=== PATIENT | female | born 1955 | race Caucasian/White ===

== ENCOUNTER → 2018-06-16 | Outpatient (REF) | payer BC, MEDICARE, SELFPAY ==
[2018-06-16 13:10] LABS: ALBUMIN 3.9 GM/DL (3.2-5.2); ALBUMIN/GLOBULIN RATIO 1.39 (1.00-1.93); ALKALINE PHOSPHATASE 73 U/L (45-117); ALT/SGPT 36 U/L (12-78); ANION GAP 9 MEQ/L (8-16); AST/SGOT 14 U/L (7-37); BILIRUBIN,TOTAL 0.5 MG/DL (0.2-1.0); BLOOD UREA NITROGEN 16 MG/DL (7-18); CALCIUM LEVEL 8.9 MG/DL (8.8-10.2); CARBON DIOXIDE LEVEL 27 MEQ/L (21-32); CHLORIDE LEVEL 107 MEQ/L (98-107); CHOLESTEROL LEVEL 169 MG/DL (<200); CREATININE FOR GFR 0.89 MG/DL (0.55-1.30); GLOMERULAR FILTRATION RATE > 60.0 (>45); GLUCOSE, FASTING 140 MG/DL (70-100); HDL CHOLESTEROL 66 MG/DL (>40); LDL CHOLESTEROL 82.4 MG/DL (<100); NON-HDL-C 103 MG/DL; POTASSIUM SERUM 3.9 MEQ/L (3.5-5.1); SODIUM LEVEL 143 MEQ/L (136-145); TOTAL PROTEIN 6.7 GM/DL (6.4-8.2); TRIGLYCERIDES LEVEL 103 MG/DL (<150)
[2018-06-16 14:06] LABS: ESTIMATED AVERAGE GLUCOSE 146 MG/DL (60-110); HEMOGLOBIN A1c 6.7 %
== END ==
LOC: M LABDRWAD 12:23
DX: E11.9 Type 2 diabetes mellitus without complications (principal); E78.00 Pure hypercholesterolemia, unspecified
CPT/HCPCS: 84443

== ENCOUNTER → 2018-09-30 | Outpatient (REF) | payer BC, MEDICARE, OTHER ==
[~2018-09-30] MED LIST: /PRAV20TA OR; AUGM875T28 PO; BACT800T5 PO; COZA50TA PO; IBUP200C25 PO; IBUP400T OR; LISI10TA4 OR; LOSA25TA14 PO; MULTIVIT PO; PRAV10TA4 PO; ZANT150T OR; ZANT150T15 PO; [UNRECOGNIZED DRUG - OTHER]
[2018-09-30 14:20] LABS: ALT/SGPT 39 U/L (12-78); BILIRUBIN,TOTAL 0.5 MG/DL (0.2-1.0); BLOOD UREA NITROGEN 15 MG/DL (7-18); CALCIUM LEVEL 9.4 MG/DL (8.8-10.2); CARBON DIOXIDE LEVEL 25 MEQ/L (21-32); CHLORIDE LEVEL 107 MEQ/L (98-107); CREATININE FOR GFR 0.76 MG/DL (0.55-1.30); GLOMERULAR FILTRATION RATE > 60.0 (>45); GLUCOSE, FASTING 95 MG/DL (70-100); POTASSIUM SERUM 4.4 MEQ/L (3.5-5.1); SODIUM LEVEL 141 MEQ/L (136-145)
[2018-09-30 14:21] LABS: HEMOGLOBIN A1c 5.4 %
[2018-09-30 14:55] LABS: MALB URINE SIEMENS 30.2 MG/L; MAU/CREAT RATIO 18.4 MCG/MG (0.0-30.0)
== END ==
LOC: M LABDRWAD 12:20
PROVIDERS: ATTEND Family Medicine
DX: E11.9 Type 2 diabetes mellitus without complications (principal)

== ENCOUNTER → 2018-10-11 | Outpatient (REF) | payer BC, OTHER | LOC: M LAB REF 17:53 | DX: J02.9 Acute pharyngitis, unspecified (principal) | CPT/HCPCS: 87081 ==

== ENCOUNTER → 2019-01-28 | Outpatient (REF) | payer OTHER ==
[2019-01-28 13:43] LABS: BLOOD UREA NITROGEN 21 MG/DL (7-18); CALCIUM LEVEL 9.4 MG/DL (8.8-10.2); CARBON DIOXIDE LEVEL 28 MEQ/L (21-32); CHLORIDE LEVEL 107 MEQ/L (98-107); CREATININE FOR GFR 0.89 MG/DL (0.55-1.30); FREE T4 1.09 NG/DL (0.76-1.46); GLOMERULAR FILTRATION RATE > 60.0 (>45); GLUCOSE, FASTING 101 MG/DL (70-100); POTASSIUM SERUM 3.9 MEQ/L (3.5-5.1); SODIUM LEVEL 142 MEQ/L (136-145)
[2019-01-28 14:37] LABS: HEMOGLOBIN A1c 5.5 %
== END ==
LOC: M LABDRWAD 12:23
PROVIDERS: ATTEND Physician Assistant
DX: E11.9 Type 2 diabetes mellitus without complications (principal); E78.00 Pure hypercholesterolemia, unspecified

== ENCOUNTER → 2019-07-08 | Outpatient (REF) | payer OTHER ==
[~2019-07-08] MED LIST changes: -/PRAV20TA OR; +PRAV1TAB39 OR
[2019-07-08 14:38] LABS: BASO % 0.7 % (0.0-1.0); EOS # 0.2 10^3/uL (0.0-0.50); HEMATOCRIT 41.1 % (36.0-47.0); HEMOGLOBIN 13.7 g/dl (12.0-15.5); LYMPH # 1.6 10^3/uL (1.5-4.5); LYMPH % 36.4 % (24.0-44.0); MEAN CORPUSCULAR HEMOGLOBIN 31.1 pg (27.0-33.0); MEAN CORPUSCULAR HGB CONC 33.3 g/dl (32.0-36.5); MEAN CORPUSCULAR VOLUME 93.2 fl (80.0-96.0); MONO # 0.4 10^3/uL (0.0-0.8); MONO % 9.8 % (0.0-5.0); NEUTROPHILS # 2.1 10^3/uL (1.8-7.7); NEUTROPHILS % 47.9 % (36.0-66.0); PLATELET COUNT, AUTOMATED 213 10^3/uL (150-450); RED BLOOD COUNT 4.41 10^6/uL (4.00-5.40); WHITE BLOOD COUNT 4.4 10^3/uL (4.0-10.0)
[2019-07-08 15:30] LABS: ALT/SGPT 29 U/L (12-78); BILIRUBIN,TOTAL 0.4 MG/DL (0.2-1.0); BLOOD UREA NITROGEN 18 MG/DL (7-18); CALCIUM LEVEL 9.5 MG/DL (8.8-10.2); CARBON DIOXIDE LEVEL 30 MEQ/L (21-32); CHLORIDE LEVEL 108 MEQ/L (98-107); CHOLESTEROL LEVEL 174 MG/DL (<200); CHOLESTEROL RISK RATIO 2.558 (<5); CREATININE FOR GFR 0.88 MG/DL (0.55-1.30); GLOMERULAR FILTRATION RATE > 60.0 (>45); GLUCOSE, FASTING 103 MG/DL (70-100); HDL CHOLESTEROL 68 MG/DL (>40); LDL CHOLESTEROL 91 MG/DL (<100); NON-HDL-C 106 MG/DL; POTASSIUM SERUM 4.5 MEQ/L (3.5-5.1); SODIUM LEVEL 143 MEQ/L (136-145); TRIGLYCERIDES LEVEL 76 MG/DL (<150)
[2019-07-08 16:08] LABS: HEMOGLOBIN A1c 5.7 %
== END ==
LOC: M LABDRWAD 12:07
PROVIDERS: ATTEND Family Medicine
DX: E11.9 Type 2 diabetes mellitus without complications (principal); E78.00 Pure hypercholesterolemia, unspecified; I10 Essential (primary) hypertension

== ENCOUNTER → 2019-10-13 | Outpatient (REF) | payer MEDICARE, OTHER ==
[~2019-10-13] MED LIST changes: +BYDU1INJ SC; +CHOL50003 PO; +GLUC1CAP10 PO; +LOSA50TA88 PO; +METF500T13 PO; +MULTCAP PO; +OMEG1CAP16 PO; +PRAV40TA2 PO; +PROBCAP14 PO; +THERATEARS OU; +VENTAER INH
[2019-10-13 13:54] LABS: HEMOGLOBIN A1c 5.5 %
[2019-10-13 13:57] LABS: BLOOD UREA NITROGEN 18 MG/DL (7-18); CALCIUM LEVEL 9.4 MG/DL (8.8-10.2); CARBON DIOXIDE LEVEL 30 MEQ/L (21-32); CHLORIDE LEVEL 107 MEQ/L (98-107); CREATININE FOR GFR 0.96 MG/DL (0.55-1.30); GLOMERULAR FILTRATION RATE > 60.0 (>45); GLUCOSE, FASTING 107 MG/DL (70-100); POTASSIUM SERUM 4.7 MEQ/L (3.5-5.1); SODIUM LEVEL 142 MEQ/L (136-145)
== END ==
LOC: M LABDRWAD 12:36
PROVIDERS: ATTEND Physician Assistant
DX: E11.9 Type 2 diabetes mellitus without complications (principal)

== ENCOUNTER → 2019-10-27 | Outpatient (REF) | payer MEDICARE ==
[2019-10-27 12:52] LABS: HEMATOCRIT 42.6 % (36.0-47.0); HEMOGLOBIN 14.1 g/dl (12.0-15.5); MEAN CORPUSCULAR HEMOGLOBIN 31.1 pg (27.0-33.0); MEAN CORPUSCULAR HGB CONC 33.1 g/dl (32.0-36.5); PLATELET COUNT, AUTOMATED 197 10^3/uL (150-450); RED BLOOD COUNT 4.53 10^6/uL (4.00-5.40); WHITE BLOOD COUNT 4.1 10^3/uL (4.0-10.0)
[2019-10-27 13:17] LABS: BLOOD UREA NITROGEN 12 MG/DL (7-18); CALCIUM LEVEL 10.1 MG/DL (8.8-10.2); CARBON DIOXIDE LEVEL 28 MEQ/L (21-32); CHLORIDE LEVEL 106 MEQ/L (98-107); CREATININE FOR GFR 0.78 MG/DL (0.55-1.30); GLOMERULAR FILTRATION RATE > 60.0 (>45); GLUCOSE, FASTING 94 MG/DL (70-100); POTASSIUM SERUM 4.6 MEQ/L (3.5-5.1); SODIUM LEVEL 141 MEQ/L (136-145)
== END ==
LOC: M LAB REF 12:33
PROVIDERS: ATTEND Physician Assistant
DX: I44.2 Atrioventricular block, complete (principal)

== ENCOUNTER 2019-10-28 13:23 | Day surgery (SDC) | payer MEDICARE ==
[~2019-10-28] VITALS: Ht 172.7 cm; Wt 109.7 kg
[~2019-10-28 13:23] MED LIST changes: +LIDOCAINE 1% MDV 20ML VIAL SQ PRN; +LR 1,000 ML IV ONE; +ceFAZolin SOD 1 GM in D5W MINI-BAG PLUS 50 ML IV ONE
[2019-10-28] MEDS ORDERED: MIDAZOLAM INJ 2 MG/2 ML VIAL (J2250) As Ordered ONE (15:36)
[2019-10-28] MEDS ORDERED: PROPOFOL 200 MG/20 ML VIAL As Ordered ONE (15:37)
[2019-10-28] MEDS ORDERED: fentaNYL 100 MCG/2 ML INJECTION (J3010) As Ordered ONE (15:37)
[2019-10-28] MEDS ORDERED: LIDOCAINE 2% INJ 100 MG/5 ML SDV (FOR ANES.) As Ordered ONE (15:37)
[2019-10-28] MEDS ORDERED: ONDANSETRON 4MG/2ML VIAL (J2405) As Ordered ONE (16:53)
[2019-10-28 17:55] VITALS: BP 176/90
[2019-10-28] MEDS ORDERED: LIDOCAINE 1% SDV INJ 30 ML VIAL As Ordered ONE ×2 (18:41→18:42)
[2019-10-28] MEDS ORDERED: BACITRACIN PWD 50,000 UNITS VIAL As Ordered ONE ×2 (18:41→18:42)
--- NOTE | 2019-10-29 08:25 | RO ---
DATE OF PROCEDURE: 10/28/2019 PROCEDURE: 1. Explantation of depleted dual-chamber pacemaker battery. 2. Testing of old atrial and ventricular pacing leads. 3. Implantation of new dual-chamber pulse generator. IMPLANTING SALES ASSISTANTS AND SALESPERSONS: Dr. Luis Peter ANESTHESIOLOGIST: Dr. El PREOPERATIVE DIAGNOSES: 1. Pacemaker battery depletion. 2. Complete heart block. POSTOPERATIVE DIAGNOSES: 1. Pacemaker battery depletion. 2. Complete heart block. TYPE OF ANESTHESIA: Local anesthesia. CLINICAL SUMMARY: This 64-year-old resident of [place], [place] is well-known to my cardiology practice with hypertensive heart disease complicated by abnormal EKG and complete heart block. Status post permanent dual-chamber pacemaker implantation September of 2010. She has been followed regularly through my office and has been free of cardiovascular complaints. Her pacemaker battery has recently reached the elective replacement indicator and so her current procedure was scheduled. Pleasant obese late middle-aged woman lay comfortably. Heart rate 60 bpm and regular, blood pressure 136/76 sitting with large cuff. Respiratory rate 16. BMI of 36.9. No pallor or cyanosis. Normal oral moisture. Upper and lower dentures. Trachea midline. Neck veins were 3 cm above the sternal angle. Increased anteroposterior chest diameter with normal chest expansion. Well-healed pacemaker incision left subclavian region. Good air entry over both lung butler. No abnormal adventitious sounds. Heart sounds were quite distant. No audible gallop or murmur. Normal carotid upstrokes and pulses. No bruits. Plus/minus dependent pedal edema with few superficial dilated venules. Normal pedal pulses. Obese, soft abdomen. EKG showed consistent AV sequentially paced rhythm with paced QRS complexes having a left axis with left bundle branch block (LBBB) configuration in keeping with RV apical stimulation. Last blood work showed electrolyte balance with BUN 21, creatinine 0.9, potassium 3.9. Thyroid function was normal. DESCRIPTION OF PROCEDURE: The patient is in a fasting state having signed informed consent and having received Ancef 2 grams IV premedication, the patient was taken to the operating theater. Numerous skin electrodes were applied to facilitate continuous electrocardiographic monitoring. Self-adhesive cardioverting/defibrillating patches were applied in an anteroposterior configuration and connected to a bedside cardioverter defibrillator. The left subclavian region, the site of her old pacemaker, was then prepped and draped in the usual fashion. The skin over her old incision was infiltrated with 1% Xylocaine and a 5 cm linear incision was made. Careful dissection was carried down to the level of her old pulse generator which was then carefully explanted. ([employer] - model number [id number], serial number [id number] implanted October 09, 2010). Her old atrial and ventricular pacing leads were then carefully disconnected and tested independently. Her right ventricular pacing lead ([employer] model number 2088T/58, serial number [id number]) measurements were: Stimulation threshold 1.0, V/0.4 ms/impedance 410 ohms. She had no intrinsic R wave. Her right atrial lead ([employer] model number 2088T/52, serial number [id number]) measurements were: Stimulation threshold 0.75, V/0.4 ms/impedance 460 ohms. Her P wave amplitude measured 4.0 mV. These old pacing leads were then connected to a new MRI compatible dual-chamber pulse generator ([employer] model number [id number], serial number [id number]) and appropriate DDD pacing was documented. The old pacer pocket was thoroughly irrigated with bacitracin solution. The new device was then placed in the pocket. Subcutaneous tissues were approximated using a running chromic suture and the skin was closed using gian. A dry dressing was applied and the patient was returned to the recovery room in good condition. No apparent complications. Estimated blood loss less than 5 mL. She will be monitored briefly in the advanced recovery and able to be discharged home when she is able to ambulate and tolerate p.o. intake. DISCHARGE MEDICATIONS AND RECOMMENDATIONS: The patient has been instructed to perform only light activities of daily living with her left arm until her gian are removed in my office in 7-10 days. My office will be contacting her tomorrow morning with that appointment. She was also instructed to avoid getting her incision wet until her gian are removed. Her diet will resume, no added salt, reducing diet. Other activity is as tolerated. Medications were to include losartan 50 mg daily, pravastatin 40 mg q.h.s., multivitamin 1 tablet daily, omega 3 1000 units p.o. daily, metformin 500 mg p.o. b.i.d., Bydureon 2 mg subcutaneous once weekly, eye drops as directed, probiotic once daily, glucosamine sulfate 500 mg daily. I have requested she contact our office for any abnormal erythema, swelling or discharge. edited: 10/29/2019 0829 tkf
== END 2019-10-28 18:05 | disposition home or self-care (01) ==
LOC: M SDC 13:23
PROVIDERS: ATTEND Internal Medicine Cardiovascular Disease
DX: Z45.010 Encounter for checking and testing of cardiac pacemaker pulse generator [battery] (principal); I44.2 Atrioventricular block, complete; E11.9 Type 2 diabetes mellitus without complications; I10 Essential (primary) hypertension; K21.9 Gastro-esophageal reflux disease without esophagitis; J45.909 Unspecified asthma, uncomplicated; Z79.899 Other long term (current) drug therapy; Z88.8 Allergy status to other drugs, medicaments and biological substances; Z88.1 Allergy status to other antibiotic agents
CPT/HCPCS: 33228; C1785; J0690; J2250; J2405; J3010

== ENCOUNTER → 2020-03-30 | Outpatient (REF) | payer MEDICARE ==
[~2020-03-30] MED LIST changes: -LIDOCAINE 1% MDV 20ML VIAL SQ PRN; -LR 1,000 ML IV ONE; -ceFAZolin SOD 1 GM in D5W MINI-BAG PLUS 50 ML IV ONE
[2020-03-30 13:04] LABS: BASO # 0.1 10^3/uL (0.0-0.2); BASO % 1.2 % (0.0-1.0); EOS # 0.2 10^3/uL (0.0-0.5); EOS % 4.7 % (0.0-3.0); HEMOGLOBIN 14.7 g/dl (12.0-15.5); LYMPH # 1.5 10^3/uL (1.5-5.0); MEAN CORPUSCULAR HEMOGLOBIN 31.8 pg (27.0-33.0); MEAN CORPUSCULAR HGB CONC 34.2 g/dl (32.0-36.5); MEAN CORPUSCULAR VOLUME 93.1 fl (80.0-96.0); MONO # 0.5 10^3/uL (0.0-0.8); MONO % 11.2 % (0.0-5.0); NEUTROPHILS % 47.7 % (36.0-66.0); PLATELET COUNT, AUTOMATED 210 10^3/uL (150-450); RED BLOOD COUNT 4.62 10^6/uL (4.00-5.40); WHITE BLOOD COUNT 4.3 10^3/uL (4.0-10.0)
[2020-03-30 13:20] LABS: ALBUMIN 4.1 GM/DL (3.2-5.2); ALT/SGPT 33 U/L (12-78); BILIRUBIN,TOTAL 0.4 MG/DL (0.2-1.0); BLOOD UREA NITROGEN 18 MG/DL (7-18); CARBON DIOXIDE LEVEL 25 MEQ/L (21-32); CHLORIDE LEVEL 108 MEQ/L (98-107); CHOLESTEROL LEVEL 195 MG/DL (<200); CHOLESTEROL RISK RATIO 2.708 (<5); CREATININE FOR GFR 0.76 MG/DL (0.55-1.30); GLOMERULAR FILTRATION RATE > 60.0 (>45); GLUCOSE, FASTING 94 MG/DL (70-100); HDL CHOLESTEROL 72 MG/DL (>40); LDL CHOLESTEROL 98 MG/DL (<100); NON-HDL-C 123 MG/DL; POTASSIUM SERUM 4.2 MEQ/L (3.5-5.1); SODIUM LEVEL 142 MEQ/L (136-145); TOTAL PROTEIN 7.2 GM/DL (6.4-8.2); TRIGLYCERIDES LEVEL 123 MG/DL (<150)
[2020-03-30 16:25] LABS: HEMOGLOBIN A1c 5.8 %
== END ==
LOC: M LABDRWAD 12:25
PROVIDERS: ATTEND Family Medicine
DX: I11.9 Hypertensive heart disease without heart failure (principal); E11.9 Type 2 diabetes mellitus without complications; E78.00 Pure hypercholesterolemia, unspecified

== ENCOUNTER → 2020-10-05 | Outpatient (REF) | payer MEDICARE ==
[2020-10-05 13:04] LABS: BLOOD UREA NITROGEN 13 MG/DL (7-18); CALCIUM LEVEL 9.2 MG/DL (8.8-10.2); CARBON DIOXIDE LEVEL 28 MEQ/L (21-32); CHLORIDE LEVEL 107 MEQ/L (98-107); GLOMERULAR FILTRATION RATE > 60.0 (>45); GLUCOSE, FASTING 101 MG/DL (70-100); POTASSIUM SERUM 4.5 MEQ/L (3.5-5.1); SODIUM LEVEL 141 MEQ/L (136-145)
[2020-10-05 13:17] LABS: HEMOGLOBIN A1c 5.4 %
== END ==
LOC: M LABDRWAD 12:14
PROVIDERS: ATTEND Physician Assistant
DX: E11.9 Type 2 diabetes mellitus without complications (principal)

== ENCOUNTER → 2021-04-05 | Outpatient (REF) | payer MEDICARE ==
[2021-04-05 13:18] LABS: EOS # 0.2 10^3/uL (0.0-0.5); EOS % 4.6 % (0.0-3.0); HEMATOCRIT 44.4 % (36.0-47.0); HEMOGLOBIN 14.5 g/dl (12.0-15.5); LYMPH # 1.4 10^3/uL (1.5-5.0); LYMPH % 34.8 % (24.0-44.0); MEAN CORPUSCULAR HEMOGLOBIN 31.5 pg (27.0-33.0); MEAN CORPUSCULAR HGB CONC 32.7 g/dl (32.0-36.5); MEAN CORPUSCULAR VOLUME 96.3 fl (80.0-96.0); MONO # 0.5 10^3/uL (0.0-0.8); MONO % 11.2 % (2.0-8.0); NEUTROPHILS % 48.2 % (36.0-66.0); PLATELET COUNT, AUTOMATED 202 10^3/uL (150-450); RED BLOOD COUNT 4.61 10^6/uL (4.00-5.40); WHITE BLOOD COUNT 4.1 10^3/uL (4.0-10.0)
[2021-04-05 14:11] LABS: HEMOGLOBIN A1c 5.4 %
[2021-04-05 14:39] LABS: ALBUMIN 4.1 GM/DL (3.2-5.2); ALT/SGPT 33 U/L (12-78); BILIRUBIN,TOTAL 0.5 MG/DL (0.2-1.0); BLOOD UREA NITROGEN 16 MG/DL (7-18); CALCIUM LEVEL 9.9 MG/DL (8.8-10.2); CARBON DIOXIDE LEVEL 26 MEQ/L (21-32); CHLORIDE LEVEL 107 MEQ/L (98-107); CHOLESTEROL LEVEL 199 MG/DL (<200); CHOLESTEROL RISK RATIO 2.584 (<5); GLOMERULAR FILTRATION RATE > 60.0 (>45); GLUCOSE, FASTING 101 MG/DL (70-100); HDL CHOLESTEROL 77 MG/DL (>40); LDL CHOLESTEROL 102 MG/DL (<100); NON-HDL-C 122 MG/DL; POTASSIUM SERUM 4.4 MEQ/L (3.5-5.1); SODIUM LEVEL 141 MEQ/L (136-145); TOTAL PROTEIN 6.9 GM/DL (6.4-8.2); TRIGLYCERIDES LEVEL 102 MG/DL (<150)
[2021-04-05 14:41] LABS: CREATININE, URINE 71.1 MG/DL; MALB URINE SIEMENS 16.1 MG/L; MAU/CREAT RATIO 22.6 MCG/MG (0.0-30.0)
== END ==
LOC: M LABDRWAD 12:22 → M LAB REF 12:22
PROVIDERS: ATTEND Family Medicine
DX: E11.9 Type 2 diabetes mellitus without complications (principal); E78.00 Pure hypercholesterolemia, unspecified

== ENCOUNTER → 2021-05-04 | Outpatient (CLI) | payer MEDICARE ==
--- NOTE | 2021-05-04 11:28 | DEXAMM ---
INDICATION: Z13.820 SCREENING FOR OSTEOPOROSIS. COMPARISON: None. TECHNIQUE: Bone density was measured using dual-energy x-ray absorptiometry (DEXA). FINDINGS: AP SPINE L1-L4 BMD 1.230 g/cm2 Young Adult T-Score 0.1 Age Matched Z-Score 1.8. LT FEMUR, TOTAL BMD 0.854 g/cm2 Young Adult T-Score -1.2 Age Matched Z-Score 0.1. LT NECK BMD 0.745 g/cm2 Young Adult T-Score -2.1 Age Matched Z-Score -0.5. RT FEMUR, TOTAL BMD 0.920 g/cm2 Young Adult T-Score -0.7 Age Matched Z-Score 0.7. RT NECK BMD 0.786 g/cm2 Young Adult T-Score -1.8 Age Matched Z-Score -0.2. IMPRESSION: There is normal bone density of the spine. There is low bone density of the left hip. There is low bone density of the right hip. FOLLOW-UP: Recommendation for the next bone density exam: 2 years. <Electronically signed by Sridhar Long > 05/04/21 1120
== END ==
LOC: M WHC 07:54
PROVIDERS: ATTEND Physician Assistant
DX: Z13.820 Encounter for screening for osteoporosis (principal); M85.851 Other specified disorders of bone density and structure, right thigh; M85.852 Other specified disorders of bone density and structure, left thigh; M25.551 Pain in right hip

== ENCOUNTER → 2021-05-04 | Outpatient (CLI) | payer MEDICARE ==
--- NOTE | 2021-05-04 09:55 | REPPI ---
INDICATION: M25.551 PAIN IN RIGHT HIP COMPARISON: None. TECHNIQUE: AP and frog-lateral views of the right hip FINDINGS: Generalized age-related changes include subtle increased sclerosis to the acetabulum with very minimal joint space narrowing. No further overt osteoarthritic or significant degenerative changes are appreciated. No evidence for acute or healed injury. Surrounding soft tissues are normal. IMPRESSION: Mild generalized age-related changes. <Electronically signed by Jaciel Levy > 05/04/21 0990
== END ==
LOC: M PLAIMG 08:43
PROVIDERS: ATTEND Physician Assistant
DX: M25.551 Pain in right hip (principal)

== ENCOUNTER → 2021-07-10 | Outpatient (REF) | payer MEDICARE ==
[2021-07-10 13:08] LABS: BLOOD UREA NITROGEN 18 MG/DL (7-18); CALCIUM LEVEL 9.5 MG/DL (8.8-10.2); CARBON DIOXIDE LEVEL 27 MEQ/L (21-32); CHLORIDE LEVEL 107 MEQ/L (98-107); CREATININE FOR GFR 0.85 MG/DL (0.55-1.30); GLOMERULAR FILTRATION RATE > 60.0 (>45); GLUCOSE, FASTING 103 MG/DL (70-100); POTASSIUM SERUM 4.6 MEQ/L (3.5-5.1); SODIUM LEVEL 140 MEQ/L (136-145)
== END ==
LOC: M LABDRWAD 12:24
PROVIDERS: ATTEND Physician Assistant
DX: E11.9 Type 2 diabetes mellitus without complications (principal)

== ENCOUNTER → 2021-07-11 | Outpatient (CLI) | payer MEDICARE ==
[~2021-07-11] MED LIST changes: +ISOVUE-370 76% 100ML VIAL As Ordered ONE
--- NOTE | 2021-07-11 16:34 | REPVR ---
PROCEDURE INFORMATION: Exam: CT Angiography Head With Contrast, Arteriography Exam date and time: 07/11/2021 4:11 PM Age: 66 years old Clinical indication: Dizziness and giddiness; Additional info: Dizziness, giddiness TECHNIQUE: Imaging protocol: Computed tomography angiography of the head with contrast. Exam focused on the arteries. 3D rendering (Not supervised by radiologist): MIP and/or 3D reconstructed images were created by the technologist. Radiation optimization: All CT scans at this facility use at least one of these dose optimization techniques: automated exposure control; mA and/or kV adjustment per patient size (includes targeted exams where dose is matched to clinical indication); or iterative reconstruction. Contrast material: ISOVUE 370; Contrast volume: 75 ml; Contrast route: INTRAVENOUS (IV); COMPARISON: No relevant prior studies available. FINDINGS: ANTERIOR CIRCULATION: Right internal carotid artery: Mild stenosis of the right internal carotid artery in the cavernous portion by calcified plaque. Right middle cerebral artery: Unremarkable. No occlusion or significant stenosis. No aneurysm. Right anterior cerebral artery: Unremarkable. No occlusion or significant stenosis. No aneurysm. Left internal carotid artery: Unremarkable. Intracranial segment is patent with no significant stenosis. No aneurysm. Left middle cerebral artery: Unremarkable. No occlusion or significant stenosis. No aneurysm. Left anterior cerebral artery: Unremarkable. No occlusion or significant stenosis. No aneurysm. POSTERIOR CIRCULATION: Right vertebral artery: Right vertebral artery is dominant. Left vertebral artery: Unremarkable. No occlusion or significant stenosis. No aneurysm. Basilar artery: Unremarkable. No occlusion or significant stenosis. No aneurysm. Right posterior cerebral artery: Unremarkable. No occlusion or significant stenosis. No aneurysm. Left posterior cerebral artery: Unremarkable. No occlusion or significant stenosis. No aneurysm. IMPRESSION: No stenosis or occlusion of the intracranial arteries. Electronically signed by: Ramesh Betancourt On 07/11/2021 16:34:25 PM
== END ==
LOC: M RAD 15:39
PROVIDERS: ATTEND Physician Assistant
DX: R42 Dizziness and giddiness (principal)
CPT/HCPCS: 70496; Q9967

== ENCOUNTER → 2021-10-13 | Outpatient (REF) | payer MEDICARE ==
[~2021-10-13] MED LIST changes: -ISOVUE-370 76% 100ML VIAL As Ordered ONE
[2021-10-13 13:18] LABS: HEMATOCRIT 39.9 % (36.0-47.0); HEMOGLOBIN 13.4 g/dl (12.0-15.5); MEAN CORPUSCULAR HEMOGLOBIN 31.5 pg (27.0-33.0); MEAN CORPUSCULAR HGB CONC 33.6 g/dl (32.0-36.5); MEAN CORPUSCULAR VOLUME 93.9 fl (80.0-96.0); PLATELET COUNT, AUTOMATED 208 10^3/uL (150-450); RED BLOOD COUNT 4.25 10^6/uL (4.00-5.40); WHITE BLOOD COUNT 4.1 10^3/uL (4.0-10.0)
[2021-10-13 14:02] LABS: BLOOD UREA NITROGEN 19 MG/DL (7-18); CALCIUM LEVEL 9.7 MG/DL (8.8-10.2); CARBON DIOXIDE LEVEL 26 MEQ/L (21-32); CHLORIDE LEVEL 105 MEQ/L (98-107); CREATININE FOR GFR 0.97 MG/DL (0.55-1.30); GLOMERULAR FILTRATION RATE > 60.0 (>45); GLUCOSE, FASTING 125 MG/DL (70-100); POTASSIUM SERUM 4.1 MEQ/L (3.5-5.1); SODIUM LEVEL 139 MEQ/L (136-145)
== END ==
LOC: M LABDRWAD 12:49
PROVIDERS: ATTEND Physician Assistant
DX: I48.0 Paroxysmal atrial fibrillation (principal)

== ENCOUNTER → 2022-01-30 | Outpatient (REF) | payer MEDICARE ==
[~2022-01-30] MED LIST changes: +LOSA25TA13 PO; -LOSA25TA14 PO; +LOSA50TA28 PO; -LOSA50TA88 PO
[2022-01-30 13:21] LABS: BASO % 0.8 % (0.0-1.0); EOS # 0.2 10^3/uL (0.0-0.5); EOS % 4.8 % (0.0-3.0); HEMATOCRIT 40.2 % (36.0-47.0); HEMOGLOBIN 13.4 g/dl (12.0-15.5); LYMPH # 1.2 10^3/uL (1.5-5.0); LYMPH % 34.7 % (24.0-44.0); MEAN CORPUSCULAR HEMOGLOBIN 31.2 pg (27.0-33.0); MEAN CORPUSCULAR HGB CONC 33.3 g/dl (32.0-36.5); MEAN CORPUSCULAR VOLUME 93.7 fl (80.0-96.0); MONO # 0.4 10^3/uL (0.0-0.8); MONO % 10.4 % (2.0-8.0); NEUTROPHILS # 1.8 10^3/uL (1.5-8.5); PLATELET COUNT, AUTOMATED 212 10^3/uL (150-450); RED BLOOD COUNT 4.29 10^6/uL (4.00-5.40); WHITE BLOOD COUNT 3.6 10^3/uL (4.0-10.0)
[2022-01-30 13:56] LABS: ALBUMIN 4.1 GM/DL (3.2-5.2); ALT/SGPT 34 U/L (12-78); BILIRUBIN,TOTAL 0.5 MG/DL (0.2-1.0); BLOOD UREA NITROGEN 13 MG/DL (7-18); CALCIUM LEVEL 9.4 MG/DL (8.8-10.2); CARBON DIOXIDE LEVEL 29 MEQ/L (21-32); CHLORIDE LEVEL 109 MEQ/L (98-107); CHOLESTEROL LEVEL 173 MG/DL (<200); CHOLESTEROL RISK RATIO 2.746 (<5); CREATININE FOR GFR 0.69 MG/DL (0.55-1.30); GLOMERULAR FILTRATION RATE > 60.0 (>45); GLUCOSE, FASTING 98 MG/DL (70-100); HDL CHOLESTEROL 63 MG/DL (>40); LDL CHOLESTEROL 87 MG/DL (<100); NON-HDL-C 110 MG/DL; SODIUM LEVEL 141 MEQ/L (136-145); TOTAL PROTEIN 6.8 GM/DL (6.4-8.2); TRIGLYCERIDES LEVEL 116 MG/DL (<150)
[2022-01-30 14:17] LABS: HEMOGLOBIN A1c 5.6 %
== END ==
LOC: M LABDRWAD 12:25
PROVIDERS: ATTEND Physician Assistant
DX: J45.20 Mild intermittent asthma, uncomplicated (principal); I11.9 Hypertensive heart disease without heart failure; E11.9 Type 2 diabetes mellitus without complications

== ENCOUNTER → 2022-05-10 | Outpatient (CLI) | payer MEDICARE ==
[2022-05-10 13:48] LABS: BASO % 0.7 % (0.0-1.0); EOS # 0.3 10^3/uL (0.0-0.5); EOS % 4.7 % (0.0-3.0); HEMATOCRIT 38.9 % (36.0-47.0); LYMPH # 1.3 10^3/uL (1.5-5.0); LYMPH % 23.8 % (24.0-44.0); MEAN CORPUSCULAR HEMOGLOBIN 31.6 pg (27.0-33.0); MEAN CORPUSCULAR HGB CONC 33.4 g/dl (32.0-36.5); MEAN CORPUSCULAR VOLUME 94.6 fl (80.0-96.0); MONO # 0.6 10^3/uL (0.0-0.8); MONO % 11.2 % (2.0-8.0); NEUTROPHILS # 3.2 10^3/uL (1.5-8.5); NEUTROPHILS % 59.4 % (36.0-66.0); PLATELET COUNT, AUTOMATED 193 10^3/uL (150-450); RED BLOOD COUNT 4.11 10^6/uL (4.00-5.40); WHITE BLOOD COUNT 5.4 10^3/uL (4.0-10.0)
[2022-05-10 14:08] LABS: HEMOGLOBIN A1c 5.5 %
[2022-05-10 14:34] LABS: ALBUMIN 3.7 GM/DL (3.2-5.2); ALT/SGPT 37 U/L (12-78); BILIRUBIN,TOTAL 0.6 MG/DL (0.2-1.0); BLOOD UREA NITROGEN 17 MG/DL (7-18); CALCIUM LEVEL 8.9 MG/DL (8.8-10.2); CARBON DIOXIDE LEVEL 26 MEQ/L (21-32); CHLORIDE LEVEL 108 MEQ/L (98-107); FREE T4 1.04 NG/DL (0.76-1.46); GLOMERULAR FILTRATION RATE > 60.0 (>45); GLUCOSE, FASTING 98 MG/DL (70-100); SODIUM LEVEL 142 MEQ/L (136-145); TOTAL PROTEIN 6.5 GM/DL (6.4-8.2)
[2022-05-10 14:37] LABS: CREATININE, URINE 90.3 MG/DL; MALB URINE SIEMENS 23.3 MG/L; MAU/CREAT RATIO 25.8 MCG/MG (0.0-30.0)
== END ==
LOC: M ADAMS 08:23
PROVIDERS: ATTEND Nurse Practitioner Adult Health
DX: E11.9 Type 2 diabetes mellitus without complications (principal)

== ENCOUNTER → 2022-07-16 | Outpatient (CLI) | payer MEDICARE ==
[2022-07-16 14:57] LABS: BLOOD UREA NITROGEN 16 MG/DL (7-18); CALCIUM LEVEL 9.9 MG/DL (8.8-10.2); CARBON DIOXIDE LEVEL 25 MEQ/L (21-32); CHLORIDE LEVEL 107 MEQ/L (98-107); CREATININE FOR GFR 0.75 MG/DL (0.55-1.30); GLOMERULAR FILTRATION RATE > 60.0 (>45); GLUCOSE, FASTING 94 MG/DL (70-100); POTASSIUM SERUM 4.1 MEQ/L (3.5-5.1); SODIUM LEVEL 138 MEQ/L (136-145)
== END ==
LOC: M ADAMS 09:54
PROVIDERS: ATTEND Internal Medicine Cardiovascular Disease
DX: I48.19 Other persistent atrial fibrillation (principal)

== ENCOUNTER → 2022-07-23 | Outpatient (CLI) | payer MEDICARE | LOC: M PLAIMG 15:42 | PROVIDERS: ATTEND Family Medicine | DX: M25.562 Pain in left knee (principal) ==

== ENCOUNTER → 2022-11-06 | Outpatient (REF) | payer MEDICARE ==
[2022-11-06 15:16] LABS: ALBUMIN 4.3 G/DL (3.2-5.2); ALKALINE PHOSPHATASE 73 U/L (46-116); ALT/SGPT 20 U/L (7.0-40); AST/SGOT 19 U/L (<34); BILIRUBIN,TOTAL 0.6 MG/DL (0.3-1.2); BLOOD UREA NITROGEN 14 MG/DL (9-23); CALCIUM LEVEL 10.2 MG/DL (8.3-10.6); CARBON DIOXIDE LEVEL 29 MMOL/L (20-31); CHLORIDE LEVEL 103 MMOL/L (98-107); CHOLESTEROL LEVEL 178 MG/DL (<200); CHOLESTEROL RISK RATIO 2.61 (<5); CREATININE FOR GFR 0.72 MG/DL (0.55-1.30); FREE T4 1.15 NG/DL (0.89-1.76); GLOMERULAR FILTRATION RATE > 60.0 (>45); GLUCOSE, FASTING 126 MG/DL (74-106); LDL CHOLESTEROL 80.8 MG/DL (<100); NON-HDL-C 110 MG/DL; POTASSIUM SERUM 4.7 MMOL/L (3.5-5.1); SODIUM LEVEL 139 MMOL/L (136-145); THYROID STIMULATING HORMONE 1.628 uIU/ML (0.55-4.78); TOTAL PROTEIN 7.2 G/DL (5.7-8.2); TRIGLYCERIDES LEVEL 146 MG/DL (<150)
[2022-11-06 17:50] LABS: HEMOGLOBIN A1c 5.4 % (4.0-6.0)
== END ==
LOC: M LABDRWAD 13:14
PROVIDERS: ATTEND Family Medicine
DX: E11.9 Type 2 diabetes mellitus without complications (principal); E78.00 Pure hypercholesterolemia, unspecified

== ENCOUNTER → 2023-05-21 | Outpatient (REF) | payer MEDICARE ==
[~2023-05-21] MED LIST changes: -COZA50TA PO; +LOSA-528 PO
[2023-05-21 14:22] LABS: BASO % 0.7 % (0.0-1.0); EOS # 0.1 10^3/uL (0.0-0.5); EOS % 3.4 % (0.0-3.0); HEMATOCRIT 40.2 % (36.0-47.0); HEMOGLOBIN 13.6 g/dl (12.0-15.5); LYMPH # 1.3 10^3/uL (1.5-5.0); MEAN CORPUSCULAR HEMOGLOBIN 31.5 pg (27.0-33.0); MEAN CORPUSCULAR HGB CONC 33.8 g/dl (32.0-36.5); MEAN CORPUSCULAR VOLUME 93.1 fl (80.0-96.0); MONO # 0.4 10^3/uL (0.0-0.8); MONO % 10.1 % (2.0-8.0); NEUTROPHILS # 2.2 10^3/uL (1.5-8.5); NEUTROPHILS % 53.6 % (36.0-66.0); PLATELET COUNT, AUTOMATED 213 10^3/uL (150-450); RED BLOOD COUNT 4.32 10^6/uL (4.00-5.40); WHITE BLOOD COUNT 4.2 10^3/uL (4.0-10.0)
[2023-05-21 14:43] LABS: ALBUMIN 4.4 G/DL (3.2-5.2); ALKALINE PHOSPHATASE 66 U/L (46-116); ALT/SGPT 18 U/L (7.0-40); AST/SGOT 9 U/L (<34); BILIRUBIN,TOTAL 0.6 MG/DL (0.3-1.2); BLOOD UREA NITROGEN 16 MG/DL (9-23); CALCIUM LEVEL 10.7 MG/DL (8.3-10.6); CARBON DIOXIDE LEVEL 26 MMOL/L (20-31); CHLORIDE LEVEL 106 MMOL/L (98-107); CREATININE FOR GFR 0.64 MG/DL (0.55-1.30); GLOMERULAR FILTRATION RATE > 60.0 (>39); GLUCOSE, FASTING 118 MG/DL (74-106); POTASSIUM SERUM 4.2 MMOL/L (3.5-5.1); SODIUM LEVEL 138 MMOL/L (136-145); TOTAL PROTEIN 6.9 G/DL (5.7-8.2)
[2023-05-21 14:48] LABS: HEMOGLOBIN A1c 5.7 % (4.0-6.0)
== END ==
LOC: M LABDRWAD 12:24
PROVIDERS: ATTEND Nurse Practitioner Adult Health
DX: E11.69 Type 2 diabetes mellitus with other specified complication (principal)

== ENCOUNTER → 2023-11-14 | Outpatient (CLI) | payer MEDICARE | LOC: M WHC 09:25 | PROVIDERS: ATTEND Family Medicine | DX: Z12.31 Encounter for screening mammogram for malignant neoplasm of breast (principal) ==

== ENCOUNTER → 2023-12-03 | Outpatient (REF) | payer MEDICARE ==
[2023-12-03 13:35] LABS: BASO % 0.6 % (0.0-1.0); EOS # 0.2 10^3/uL (0.0-0.5); EOS % 3.8 % (0.0-3.0); HEMOGLOBIN 13.7 g/dl (12.0-15.5); LYMPH # 1.3 10^3/uL (1.5-5.0); LYMPH % 28.2 % (24.0-44.0); MEAN CORPUSCULAR HEMOGLOBIN 31.9 pg (27.0-33.0); MEAN CORPUSCULAR HGB CONC 32.6 g/dl (32.0-36.5); MEAN CORPUSCULAR VOLUME 97.7 fl (80.0-96.0); MONO # 0.5 10^3/uL (0.0-0.8); MONO % 9.6 % (2.0-8.0); NEUTROPHILS # 2.7 10^3/uL (1.5-8.5); NEUTROPHILS % 57.4 % (36.0-66.0); PLATELET COUNT, AUTOMATED 218 10^3/uL (150-450); WHITE BLOOD COUNT 4.7 10^3/uL (4.0-10.0)
[2023-12-03 14:08] LABS: HEMOGLOBIN A1c 5.8 % (4.0-6.0)
[2023-12-03 14:09] LABS: CREATININE, URINE 87.7 MG/DL; MAU/CREAT RATIO 35.3 MCG/MG (0.0-30.0)
[2023-12-03 14:12] LABS: ALBUMIN 4.4 G/DL (3.2-5.2); ALKALINE PHOSPHATASE 66 U/L (46-116); ALT/SGPT 20 U/L (7.0-40); AST/SGOT 11 U/L (<34); BILIRUBIN,TOTAL 0.5 MG/DL (0.3-1.2); BLOOD UREA NITROGEN 18 MG/DL (9-23); CARBON DIOXIDE LEVEL 30 MMOL/L (20-31); CHLORIDE LEVEL 104 MMOL/L (98-107); CHOLESTEROL LEVEL 182 MG/DL (<200); CHOLESTEROL RISK RATIO 2.51 (<5); CREATININE FOR GFR 0.67 MG/DL (0.55-1.30); FREE T4 1.14 NG/DL (0.89-1.76); GLOMERULAR FILTRATION RATE > 60.0 (>39); GLUCOSE, FASTING 123 MG/DL (74-106); HDL CHOLESTEROL 72.3 MG/DL (>40); LDL CHOLESTEROL 86.9 MG/DL (<100); NON-HDL-C 109.7 MG/DL; POTASSIUM SERUM 4.6 MMOL/L (3.5-5.1); SODIUM LEVEL 139 MMOL/L (136-145); THYROID STIMULATING HORMONE 1.542 uIU/ML (0.55-4.78); TOTAL PROTEIN 6.9 G/DL (5.7-8.2); TRIGLYCERIDES LEVEL 114 MG/DL (<150)
== END ==
LOC: M LABDRWAD 12:49
PROVIDERS: ATTEND Nurse Practitioner Adult Health
DX: E11.69 Type 2 diabetes mellitus with other specified complication (principal); E78.00 Pure hypercholesterolemia, unspecified; I11.9 Hypertensive heart disease without heart failure

== ENCOUNTER → 2024-01-31 | Outpatient (REF) | payer MEDICARE ==
[2024-01-31 18:13] LABS: HEMOGLOBIN 13.7 g/dl (12.0-15.5); MEAN CORPUSCULAR HEMOGLOBIN 31.1 pg (27.0-33.0); MEAN CORPUSCULAR HGB CONC 32.6 g/dl (32.0-36.5); MEAN CORPUSCULAR VOLUME 95.2 fl (80.0-96.0); PLATELET COUNT, AUTOMATED 207 10^3/uL (150-450); RED BLOOD COUNT 4.41 10^6/uL (4.00-5.40); WHITE BLOOD COUNT 4.9 10^3/uL (4.0-10.0)
[2024-01-31 18:21] LABS: ERYTHROCYTE SEDIMENTATION RATE 30 mm/hr (0-30)
[2024-01-31 18:25] LABS: INR 1.07; PROTHROMBIN TIME 13.6 SECONDS (12.5-14.5)
[2024-01-31 18:44] LABS: ALKALINE PHOSPHATASE 75 U/L (46-116); ALT/SGPT 26 U/L (7.0-40); AST/SGOT 18 U/L (<34); BILIRUBIN,TOTAL 0.5 MG/DL (0.3-1.2); BLOOD UREA NITROGEN 15 MG/DL (9-23); CALCIUM LEVEL 9.4 MG/DL (8.3-10.6); CARBON DIOXIDE LEVEL 31 MMOL/L (20-31); CHLORIDE LEVEL 104 MMOL/L (98-107); CREATININE FOR GFR 0.62 MG/DL (0.55-1.30); GLOMERULAR FILTRATION RATE > 60.0 (>39); GLUCOSE, FASTING 139 MG/DL (74-106); POTASSIUM SERUM 4.2 MMOL/L (3.5-5.1); SODIUM LEVEL 140 MMOL/L (136-145); TOTAL PROTEIN 6.7 G/DL (5.7-8.2)
== END ==
LOC: M LABDRWAD 17:49
PROVIDERS: ATTEND Orthopaedic Surgery
DX: Z01.818 Encounter for other preprocedural examination (principal); M16.11 Unilateral primary osteoarthritis, right hip; Z79.01 Long term (current) use of anticoagulants

== ENCOUNTER 2024-02-17 13:07 | Emergency (ER) | payer MEDICARE ==
[~2024-02-17] VITALS: Ht 170.2 cm; Wt 106.8 kg
[2024-02-17 13:21] VITALS: TEMP 98.3
[2024-02-17 15:27] LABS: BASO % 0.3 % (0.0-1.0); EOS # 0.1 10^3/uL (0.0-0.5); EOS % 0.5 % (0.0-3.0); HEMATOCRIT 32.1 % (36.0-47.0); HEMOGLOBIN 10.7 g/dl (12.0-15.5); LYMPH # 0.7 10^3/uL (1.5-5.0); LYMPH % 6.4 % (24.0-44.0); MEAN CORPUSCULAR HEMOGLOBIN 31.2 pg (27.0-33.0); MEAN CORPUSCULAR HGB CONC 33.3 g/dl (32.0-36.5); MEAN CORPUSCULAR VOLUME 93.6 fl (80.0-96.0); MONO # 0.8 10^3/uL (0.0-0.8); MONO % 6.7 % (2.0-8.0); NEUTROPHILS # 9.9 10^3/uL (1.5-8.5); NEUTROPHILS % 85.5 % (36.0-66.0); PLATELET COUNT, AUTOMATED 362 10^3/uL (150-450); RED BLOOD COUNT 3.43 10^6/uL (4.00-5.40); WHITE BLOOD COUNT 11.5 10^3/uL (4.0-10.0)
[2024-02-17 15:53] LABS: BLOOD UREA NITROGEN 20 MG/DL (9-23); CALCIUM LEVEL 8.7 MG/DL (8.3-10.6); CARBON DIOXIDE LEVEL 28 MMOL/L (20-31); CHLORIDE LEVEL 102 MMOL/L (98-107); CREATININE FOR GFR 0.52 MG/DL (0.55-1.30); GLOMERULAR FILTRATION RATE > 60.0 (>39); GLUCOSE, FASTING 170 MG/DL (74-106); POTASSIUM SERUM 3.9 MMOL/L (3.5-5.1); SODIUM LEVEL 137 MMOL/L (136-145)
[2024-02-17 16:07] VITALS: O2SAT 100
[2024-02-17 16:31] VITALS: BP 109/55; O2SAT 96
== END 2024-02-17 16:51 | disposition home or self-care (01) ==
LOC: M ED 14:00
DX: M25.551 Pain in right hip (principal); I10 Essential (primary) hypertension; E78.5 Hyperlipidemia, unspecified; I44.2 Atrioventricular block, complete; Z88.8 Allergy status to other drugs, medicaments and biological substances; Z88.1 Allergy status to other antibiotic agents; Z91.018 Allergy to other foods; Z79.51 Long term (current) use of inhaled steroids; Z79.1 Long term (current) use of non-steroidal anti-inflammatories (NSAID); Z79.899 Other long term (current) drug therapy; Z79.810 Long term (current) use of selective estrogen receptor modulators (SERMs); Z79.84 Long term (current) use of oral hypoglycemic drugs

== ENCOUNTER → 2024-05-14 | Outpatient (CLI) | payer MEDICARE | LOC: M PLAIMG 14:26 | PROVIDERS: ATTEND Physician Assistant | DX: I34.0 Nonrheumatic mitral (valve) insufficiency (principal) ==

== ENCOUNTER 2024-11-01 21:09 | Emergency (ER) | payer MEDICARE ==
[~2024-11-01] VITALS: Ht 167.6 cm; Wt 107.4 kg
[2024-11-01] MEDS: ONDANSETRON 4MG 2ML VIAL IV ONE (21:30)
[2024-11-01 21:36] LABS: BASO % 0.7 % (0.0-1.0); EOS # 0.2 10^3/uL (0.0-0.5); EOS % 2.7 % (0.0-3.0); HEMATOCRIT 39.1 % (36.0-47.0); LYMPH # 1.7 10^3/uL (1.5-5.0); LYMPH % 31.7 % (24.0-44.0); MEAN CORPUSCULAR HEMOGLOBIN 31.3 pg (27.0-33.0); MEAN CORPUSCULAR HGB CONC 33.2 g/dl (32.0-36.5); MEAN CORPUSCULAR VOLUME 94.2 fl (80.0-96.0); MONO # 0.6 10^3/uL (0.0-0.8); MONO % 10.9 % (2.0-8.0); NEUTROPHILS % 53.8 % (36.0-66.0); PLATELET COUNT, AUTOMATED 209 10^3/uL (150-450); RED BLOOD COUNT 4.15 10^6/uL (4.00-5.40); WHITE BLOOD COUNT 5.5 10^3/uL (4.0-10.0)
[2024-11-01 21:40] LABS: VENOUS BASE EXCESS 1.2 (-2.0-2.0); VENOUS HCO3 26.3 MMOL/L (23.0-27.0); VENOUS PARTIAL PRESSURE CO2 43.2 mmHg (38.0-50.0); VENOUS PARTIAL PRESSURE O2 80.6 mmHg (30.0-50.0); VENOUS PH 7.402 UNITS (7.330-7.430); VENOUS STANDARD HCO3 25.5 MMOL/L; VENOUS TOTAL CO2 27.6 MMOL/L (24.0-28.0)
[2024-11-01 21:48] VITALS: BP 185/83
[2024-11-01] MEDS: hydrALAZINE 20MG/ML 1ML VIAL IV STA (21:48)
[2024-11-01] MEDS: LOSARTAN 50MG TABLET PO ONE (21:48)
[2024-11-01 22:00] LABS: CK-MB VALUE MASS 1.5 NG/ML (<3.6)
[2024-11-01 22:02] LABS: ALBUMIN 4.1 G/DL (3.2-5.2); ALKALINE PHOSPHATASE 78 U/L (35-104); ALT/SGPT 22 U/L (7.0-40); AST/SGOT 15 U/L (<34); BILIRUBIN,TOTAL 0.4 MG/DL (0.3-1.2); BLOOD UREA NITROGEN 17 MG/DL (9-23); CARBON DIOXIDE LEVEL 28 MMOL/L (20-31); CHLORIDE LEVEL 104 MMOL/L (98-107); CPK CREATINE PHOSPHOKINASE 99 U/L (34-145); CREATININE FOR GFR 0.64 MG/DL (0.55-1.30); GLOMERULAR FILTRATION RATE > 60.0 (>39); GLUCOSE, FASTING 155 MG/DL (74-106); MAGNESIUM LEVEL 1.8 MG/DL (1.8-2.4); MB/CK RELATIVE INDEX 1.51 (< OR =4); POTASSIUM SERUM 3.6 MMOL/L (3.5-5.1); SODIUM LEVEL 140 MMOL/L (136-145)
[2024-11-01] MEDS ORDERED: niCARdipine IV 40 MG in IV 1 EA IV SCH (22:15)
[2024-11-01 23:11] VITALS: BP 136/62; TEMP 97.4; O2SAT 95
== END 2024-11-01 23:15 | disposition short-term general hospital (02) ==
LOC: EDBD 21:09 → M ED 21:09
DX: S06.360A Traumatic hemorrhage of cerebrum, unspecified, without loss of consciousness, initial encounter (principal); Y92.019 Unspecified place in single-family (private) house as the place of occurrence of the external cause; Y93.9 Activity, unspecified; Y99.9 Unspecified external cause status; E11.9 Type 2 diabetes mellitus without complications; I10 Essential (primary) hypertension; E78.5 Hyperlipidemia, unspecified; E55.9 Vitamin D deficiency, unspecified; J45.909 Unspecified asthma, uncomplicated; Z79.51 Long term (current) use of inhaled steroids; Z79.1 Long term (current) use of non-steroidal anti-inflammatories (NSAID); Z79.84 Long term (current) use of oral hypoglycemic drugs; Z79.810 Long term (current) use of selective estrogen receptor modulators (SERMs); Z79.899 Other long term (current) drug therapy
CPT/HCPCS: 70450; 80047; 80053; 82550; 82553; 82803; 83735; 84484; 85025; 87486; 87581; 87633; 87798; 93005; 96374; 99291; J0360

== ENCOUNTER → 2025-06-08 | Outpatient (REF) | payer MEDICARE ==
[~2025-06-08] MED LIST changes: +PRAV10TA PO; -PRAV10TA4 PO; -PRAV40TA2 PO; +PRAV40TA85 PO
[2025-06-08 14:37] LABS: BASO # 0.0 10^3/uL (0.0-0.2); BASO % 0.8 % (0.0-1.0); EOS # 0.2 10^3/uL (0.0-0.5); EOS % 6.3 % (0.0-3.0); LYMPH # 1.3 10^3/uL (1.5-5.0); LYMPH % 33.0 % (24.0-44.0); MONO # 0.4 10^3/uL (0.0-0.8); MONO % 11.3 % (2.0-8.0); NEUTROPHILS # 1.8 10^3/uL (1.5-8.5); NEUTROPHILS % 48.1 % (36.0-66.0); PLATELET COUNT, AUTOMATED 240 10^3/uL (150-450)
[2025-06-08 15:01] LABS: ESTIMATED AVERAGE GLUCOSE 108.0 MG/DL (60-110)
[2025-06-08 15:14] LABS: ALT/SGPT 40.0 U/L (7.0-40); AST/SGOT 26.0 U/L (<34); CALCIUM LEVEL 9.5 MG/DL (8.3-10.6); CARBON DIOXIDE LEVEL 29.0 MMOL/L (20-31); CHLORIDE LEVEL 104.0 MMOL/L (98-107); CHOLESTEROL LEVEL 155.0 MG/DL (<200); CHOLESTEROL RISK RATIO 2.73 (<5); CREATININE FOR GFR 0.84 MG/DL (0.55-1.30); GLOMERULAR FILTRATION RATE 73.8 (>39); LDL CHOLESTEROL 84.6 MG/DL (<100); NON-HDL-C 98.4 MG/DL; POTASSIUM SERUM 4.7 MMOL/L (3.5-5.1); SODIUM LEVEL 142.0 MMOL/L (136-145); TRIGLYCERIDES LEVEL 69.0 MG/DL (<150)
[2025-06-08 15:17] LABS: MALB URINE SIEMENS 24.0 MG/L
[2025-06-08 15:18] LABS: CREATININE, URINE 119.2 MG/DL; MAU/CREAT RATIO 20.1 MCG/MG (0.0-30.0)
== END ==
LOC: M LABDRWAD 13:03
PROVIDERS: ATTEND Physician Assistant
DX: E11.69 Type 2 diabetes mellitus with other specified complication (principal); I11.9 Hypertensive heart disease without heart failure; I60.6 Nontraumatic subarachnoid hemorrhage from other intracranial arteries

== ENCOUNTER → 2025-11-22 | Outpatient (CLI) | payer MEDICARE | LOC: M WHC 12:57 | PROVIDERS: ATTEND Family Medicine | DX: Z12.31 Encounter for screening mammogram for malignant neoplasm of breast (principal); M81.0 Age-related osteoporosis without current pathological fracture ==